=== PATIENT | female | born 1945 | race Caucasian/White ===

== ENCOUNTER 2021-02-27 19:03 | Emergency (ER) | payer MEDICARE ==
[~2021-02-27] VITALS: Ht 157.5 cm; Wt 77.3 kg
[2021-02-27] MEDS ORDERED: SIMV-46 PO (19:21)
[2021-02-27] MEDS ORDERED: OMEP40CA21 PO (19:21)
[2021-02-27] MEDS ORDERED: HYDROCODONE/ACETAMINOPHEN 5-325 MG TABLET PO ONE (21:00)
[2021-02-27 21:59] VITALS: BP 109/65
== END 2021-02-27 22:01 | disposition home or self-care (01) ==
LOC: EMS 19:07
DX: S42.251A Displaced fracture of greater tuberosity of right humerus, initial encounter for closed fracture (principal); I10 Essential (primary) hypertension; E78.00 Pure hypercholesterolemia, unspecified; F17.210 Nicotine dependence, cigarettes, uncomplicated; Z79.899 Other long term (current) drug therapy; W18.39XA Other fall on same level, initial encounter; Y93.89 Activity, other specified; Y92.89 Other specified places as the place of occurrence of the external cause; Y99.8 Other external cause status
CPT/HCPCS: 29105; 29240; 99283